=== PATIENT | male | born 1965 | race Caucasian/White ===

== ENCOUNTER 2018-03-24 17:14 | Emergency (ER) | payer BC ==
[~2018-03-24] VITALS: Ht 182.9 cm; Wt 83.9 kg
[2018-03-24] MEDS ORDERED: NORCO 5-325 TA1 EAC1 PO (18:16)
[2018-03-24 18:32] VITALS: BP 126/86
== END 2018-03-24 18:32 | disposition home or self-care (01) ==
LOC: M.ERS 17:14
DX: S61.213A Laceration without foreign body of left middle finger without damage to nail, initial encounter (principal); W26.0XXA Contact with knife, initial encounter; Y93.89 Activity, other specified; Y92.89 Other specified places as the place of occurrence of the external cause; Y99.8 Other external cause status